=== PATIENT | male | born 1985 | race Two or more races ===

== ENCOUNTER 2022-07-03 09:37 | Emergency (ER) | payer OTHER ==
[~2022-07-03] VITALS: Ht 167.6 cm; Wt 215.0 kg
[2022-07-03 10:50] VITALS: BP 133/94
[2022-07-03 16:20] LABS: GLUCOMETER DEV NAME(LOC) ERT.5; GLUCOSE,POINT OF CARE 133 MG/DL (70-110)
== END 2022-07-03 11:29 | disposition home or self-care (01) ==
LOC: EMS 09:41
DX: R93.89 Abnormal findings on diagnostic imaging of other specified body structures (principal); E66.9 Obesity, unspecified; I10 Essential (primary) hypertension; E11.9 Type 2 diabetes mellitus without complications
CPT/HCPCS: 74176; 82962; 99284